=== PATIENT | female | born 1970 | race Caucasian/White ===

== ENCOUNTER 2018-10-15 19:30 | Emergency (ER) | payer OTHER ==
[~2018-10-15] VITALS: Ht 162.6 cm; Wt 110.9 kg
[~2018-10-15 19:30] MED LIST: ASPI-831 PO; ATOR20TA38 PO; BENA5TAB33 PO; CLON-379 PO; HYDR-3720 PO; HYDR25TA6 PO; LANT3I SC; LEVO500T48 PO; NITR0.4T39 SL; NOVO3I SC; PRED20TA PO; SERT-165 PO
[2018-10-15 19:41] VITALS: Ht 162.6 cm; Wt 110.9 kg
--- NOTE | 2018-10-15 20:34 | ERD ---
ER Documentation Chief Complaint Chief Complaint lower AP/dysuria/frequency/urgency x3 days. no n/v/d HPI 47-year-old female, with history of diabetes, presents to the emergency department, complaining of 3 days with urinary frequency, dysuria, pelvic discomfort and vaginal erythema with white discharge. No fever, no chills, no nausea or vomiting. The patient has been taking azo without improvement of the symptoms. ROS All systems reviewed and are negative except as per history of present illness. Medications Home Meds Active Scripts Clotrimazole* (Clotrimazole* AF) 1% - 30 Gm Cream.gm., 1 APPLIC TOP BID for 7 Days, TUB Prov:PING DELGADILLO MD 10/15/18 Fluconazole* (Diflucan*) 150 Mg Tablet, 150 MG PO ONCE for 1 Day, #1 TAB Prov:PING DELGADILLO MD 10/15/18 Ciprofloxacin Hcl* (Ciprofloxacin Hcl*) 250 Mg Tablet, 250 MG PO BID for 5 Days, #10 TAB Prov:PING DELGADILLO MD 10/15/18 Hydrocodone Bit-Acetaminophen* ([place]*) 7.5-325 Tablet, 1 TAB PO Q4H PRN for PAIN, #20 TAB Prov:TRAY HENNING DO 04/30/16 Prednisone* (Prednisone*) 20 Mg Tab, 60 MG PO DAILY for 5 Days, TAB Prov:TRAY HENNING DO 04/30/16 Levofloxacin* (Levaquin*) 500 Mg Tablet, 500 MG PO DAILY for 10 Days, TAB Prov:JUAN ANTONIO SMITH MD 12/10/15 Nitroglycerin* (Nitrostat*) 25 Tab Subl, 1 TAB SL Q5M PRN for ANGINA for 28 Days, BOT Prov:JUAN ANTONIO SMITH MD 12/10/15 Insulin Glargine* (Lantus*) 100 Unit/Ml Soln, 60 UNIT SC BID for 28 Days, BOT Prov:JUAN ANTONIO SMITH MD 12/10/15 Insulin Aspart* (Novolog Insulin Pen*) 100 Unit/Ml Soln, 25 UNIT SC WITH MEALS for 28 Days, BOT Prov:JUAN ANTONIO SMITH MD 12/10/15 Clonidine Hcl* (Clonidine Hcl*) 0.1 Mg Tab, 0.1 MG PO BID for 28 Days, TAB Prov:JUAN ANTONIO SMITH MD 12/10/15 Benazepril Hcl* (Benazepril Hcl*) 5 Mg Tab, 5 MG PO DAILY for 28 Days, TAB Prov:JUAN ANTONIO SMITH MD 12/10/15 Aspirin (Aspirin) 81 Mg Chew, 81 MG PO DAILY for 28 Days, TAB Prov:JUAN ANTONIO SMITH MD 12/10/15 Reported Medications Sertraline Hcl* (Sertraline Hcl*) 100 Mg Tablet, 100 MG PO DAILY, #30 TAB 12/05/15 Atorvastatin Calcium* (Atorvastatin Calcium*) 20 Mg Tablet, 20 MG PO DAILY, #30 TAB 12/05/15 Hydrochlorothiazide (Hydrochlorothiazide) 25 Mg Tablet, 25 MG PO DAILY, #30 TAB 12/05/15 Allergies Allergies: Coded Allergies: No Known Allergy (Unverified , 12/04/15) PMhx/Soc History of Surgery: Yes () Anesthesia Reaction: No Hx Neurological Disorder: No Hx Respiratory Disorders: No Hx Cardiac Disorders: Yes (htn, high cholesterol) Hx Psychiatric Problems: No Hx Miscellaneous Medical Probl: Yes (dm) Hx Alcohol Use: No Hx Substance Use: No Hx Tobacco Use: No Smoking Status: Never smoker FmHx Family History: diabetes; No coronary disease Physical Exam Vitals Vital Signs Date Temp Pulse Resp B/P (MAP) Pulse Ox O2 O2 Flow FiO2 Time Delivery Rate 10/15/18 98.1 78 16 166/84 98 19:41 (111) Physical Exam Const: No acute distress Head: Atraumatic Eyes: Normal Conjunctiva ENT: Normal External Ears, Nose and Mouth. Neck: Full range of motion. No meningismus. Resp: Clear to auscultation bilaterally Cardio: Regular rate and rhythm, no murmurs Abd: Soft, non tender, non distended. Normal bowel sounds Skin: No petechiae or rashes Back: No midline or flank tenderness Ext: No cyanosis, or edema Neur: Awake and alert Psych: Normal Mood and Affect Results 24 hrs Laboratory Tests Test 10/15/18 20:06 Bedside Urine pH (LAB) 6.5 Bedside Urine Protein (LAB) 2+ Bedside Urine Glucose (UA) 0.50% Bedside Urine Ketones (LAB) Negative Bedside Urine Blood Negative Bedside Urine Nitrite (LAB) Negative Bedside Urine Leukocyte Esterase (L Negative Procedures/MDM Differential diagnosis include but not limited to: UTI, colitis, gastroenteritis, kidney stones, irritable bowel syndrome, inflammatory bowel syndrome, malabsorption syndrome, cholelithiasis, food intolerance, medication side effect, pancreatitis, diverticulitis, bowel obstruction. Low suspicion for acute abdomen Physical examination and clinical presentation consistent most likely with cystitis During the ED course the patient remained stable, no new complaints. Results and clinical impression discussed with patient who agrees with management. The patient is stable to be treated outpatient and will be dis charged home, some side effects of prescribed medications (headache, rash, nausea, vomiting, diarrhea, drowsiness, habituation, bleeding, hypertension, interactions with other medications) were reviewed. The patient was instructed to follow up with the primary care provider in the next 48h. If symptoms persist, worsen or new symptoms develop, then patient should return to the ED immediately. Instructions explained and given directly by me to the patient with acknowledgment and demonstrated understanding. Disclaimer: Inadvertent spelling and grammatical errors are likely due to EHR/dictation software use and do not reflect on the overall quality of patient care. Also, please note that the electronic time recorded on this note does not necessarily reflect the actual time of the patient encounter. Departure Diagnosis: Primary Impression: Acute cystitis Condition: Stable Patient Instructions: Understanding Urinary Tract Infections (UTIs) Additional Instructions: Muchas marly por [facility] para salinas servicio. Esperamos que en salinas visita a la elizabeth de emergencia salinas problema medico haya sido solucionado y que se sienta mucho mejor. Para estar seguros que salinas mejoria sigue en proceso, le pedimos el favor de hacer margarita erick de seguimiento medico con salinas doctor primario en los proximos 2-4 phan. Lleve con usted estos documentos y las medicinas recetadas. Si ed sintomas empeoran, NO SE ESPERE, por favor regrese a elizabeth de emergencia INMEDIATAMENTE. En corina que usted no tenga un mdico de atencin primaria: Llame al mdico o clnica comunitaria de referencia que aparece abajo navneet las horas de consultorio para hacer margarita erick para que le vean. CLINICAS: [facility] [phone] [facility] [phone] [facility] [phone] [place] [phone] [place] [phone] [facility] [phone] PING COLON MD Oct 15, 2018 20:34
[2018-10-15] MEDS ORDERED: CLOT30CR24 TOP (20:48)
[2018-10-15] MEDS ORDERED: CIPR-193 PO (20:48)
[2018-10-15] MEDS ORDERED: FLUC150T PO (20:48)
[2018-10-15 21:11] VITALS: BP 177/74; PULSE 79; RESP 18
== END 2018-10-15 21:13 | disposition home or self-care (01) ==
LOC: FTE 19:30
DX: N30.00 Acute cystitis without hematuria (principal); E11.9 Type 2 diabetes mellitus without complications; I10 Essential (primary) hypertension; Z79.4 Long term (current) use of insulin; Z79.82 Long term (current) use of aspirin
CPT/HCPCS: 81003; Z7502; 99283

== ENCOUNTER 2019-01-09 21:28 | Emergency (ER) | payer OTHER ==
[~2019-01-09] VITALS: Wt 109.6 kg
[~2019-01-09 21:28] MED LIST changes: +CIPR-193 PO; +CLOT30CR24 TOP; +FLUC150T PO
--- NOTE | 2019-01-10 02:00 | ERD ---
ER Documentation Chief Complaint Chief Complaint vaginal pain/painful urination x 1week HPI This is a 48-year-old female presents emergency department with complaints of for about a week. Also complains of frequent urination. States that she takes her medication for diabetes regularly. LMP: Stated that he was 10 days ago. G5P to a 3. Diabetes. Denies headache, head injury, loss of consciousness, dizziness, neck pain, neck stiffness, throat pain, difficulty swallowing, difficulty breathing lying flat, shoulder pain, chest pain, back pain, abdominal pain, nausea, vomiting, constipation, diarrhea, or possibility being , loss of bowel and bladder control, trauma, injury, falls, difficulty walking due to pain, numbness or tingling sensation, calf pain, recent travel, recent major surgery in the last 3 weeks, calf pain, recent long travel, recent exposure to any illness, recent antibiotic use in the last 3 months, fever, chills, seizures. Past medical history: Hyperlipidemia. Hypertension. Surgical history: x2. Social: Denies smoking, use of alcoholic beverages, use of illegal drugs. ROS All systems reviewed and are negative except as per history of present illness. Medications Home Meds Active Scripts Ibuprofen* (Motrin*) 800 Mg Tab, 800 MG PO Q6H PRN for PAIN AND OR ELEVATED TEMP, #20 TAB Prov:MORGAN FORD 01/10/19 Phenazopyridine Hcl* (Pyridium*) 100 Mg Tab, 100 MG PO TID PRN for URINARY PAIN, #8 TAB Prov:MORGAN FORD 01/10/19 Clotrimazole* (Clotrimazole* AF) 1% - 30 Gm Cream.gm., 1 APPLIC TOP BID for 7 Days, TUB Prov:PING DELGADILLO MD 10/15/18 Fluconazole* (Diflucan*) 150 Mg Tablet, 150 MG PO ONCE for 1 Day, #1 TAB Prov:PING DELGADILLO MD 10/15/18 Ciprofloxacin Hcl* (Ciprofloxacin Hcl*) 250 Mg Tablet, 250 MG PO BID for 5 Days, #10 TAB Prov:PING DELGADILLO MD 10/15/18 Hydrocodone Bit-Acetaminophen* ([place]*) 7.5-325 Tablet, 1 TAB PO Q4H PRN for HELLEN N, #20 TAB Prov:TRAY HENNING DO 04/30/16 Prednisone* (Prednisone*) 20 Mg Tab, 60 MG PO DAILY for 5 Days, TAB Prov:TRAY HENNING DO 04/30/16 Levofloxacin* (Levaquin*) 500 Mg Tablet, 500 MG PO DAILY for 10 Days, TAB Prov:JUAN ANTONIO SMITH MD 12/10/15 Nitroglycerin* (Nitrostat*) 25 Tab Subl, 1 TAB SL Q5M PRN for ANGINA for 28 Days, BOT Prov:JUAN ANTONIO SMITH MD 12/10/15 Insulin Glargine* (Lantus*) 100 Unit/Ml Soln, 60 UNIT SC BID for 28 Days, BOT Prov:JUAN ANTONIO SMITH MD 12/10/15 Insulin Aspart* (Novolog Insulin Pen*) 100 Unit/Ml Soln, 25 UNIT SC WITH MEALS for 28 Days, BOT Prov:JUAN ANTONIO SMITH MD 12/10/15 Clonidine Hcl* (Clonidine Hcl*) 0.1 Mg Tab, 0.1 MG PO BID for 28 Days, TAB Prov:JUAN ANTONIO SMITH MD 12/10/15 Benazepril Hcl* (Benazepril Hcl*) 5 Mg Tab, 5 MG PO DAILY for 28 Days, TAB Prov:JUAN ANTONIO SMITH MD 12/10/15 Aspirin (Aspirin) 81 Mg Chew, 81 MG PO DAILY for 28 Days, TAB Prov:JUAN ANTONIO SMITH MD 12/10/15 Reported Medications Sertraline Hcl* (Sertraline Hcl*) 100 Mg Tablet, 100 MG PO DAILY, #30 TAB 12/05/15 Atorvastatin Calcium* (Atorvastatin Calcium*) 20 Mg Tablet, 20 MG PO DAILY, #30 TAB 12/05/15 Hydrochlorothiazide (Hydrochlorothiazide) 25 Mg Tablet, 25 MG PO DAILY, #30 TAB 12/05/15 Allergies Allergies: Coded Allergies: No Known Allergy (Unverified , 12/04/15) PMhx/Soc History of Surgery: Yes () Anesthesia Reaction: No Hx Neurological Disorder: No Hx Respiratory Disorders: No Hx Cardiac Disorders: Yes (htn, high cholesterol) Hx Psychiatric Problems: No Hx Miscellaneous Medical Probl: Yes (dm) Hx Alcohol Use: No Hx Substance Use: No Hx Tobacco Use: No Physical Exam Vitals Physical Exam Negative Christina sign. Negative Hamilton sign (or test). Const: No acute distress Head: Atraumatic Eyes: Normal Conjunctiva ENT: Normal External Ears, Nose and Mouth. Neck: Full range of motion. No meningismus. Resp: Clear to auscultation bilaterally Cardio: Regular rate and rhythm, no murmurs Abd: Soft, non tender, non distended. Normal bowel sounds. Negative Christina sign. Negative Hamilton sign (heel jar test). Negative psoas sign. Negative Rovsing sign. No CVA tenderness. Able to jump twice without developing lower abdominal pain. Ambulatory with steady gait without pain to lower abdomen. Skin: No petechiae or rashes. Color appears normal for ethnicity. No skin tenting no signs of severe dehydration. Back: No midline or flank tenderness Ext: No cyanosis, or edema Neur: Awake and alert. No neurological deficit. Psych: Normal Mood and Affect Results 24 hrs Laboratory Tests Test 01/10/19 02:10 Urine Color YELLOW Urine Clarity CLOUDY Urine pH 6.0 Urine Specific [place] 1.020 Urine Ketones NEGATIVE mg/dL Urine Nitrite NEGATIVE mg/dL Urine Bilirubin NEGATIVE mg/dL Urine Urobilinogen NEGATIVE mg/dL Urine Leukocyte Esterase NEGATIVE Melissa/ul Urine Microscopic RBC 1 /HPF Urine Microscopic WBC 2 /HPF Urine Squamous Epithelial Cells MODERATE /HPF Urine Hemoglobin NEGATIVE mg/dL Urine Glucose NEGATIVE mg/dL Urine Total Protein 2+ mg/dl Urine Test NEGATIVE Current Medications Medications Dose Sig/Twyla Start Time Status Last (Trade) Ordered Route PRN Stop Time Admin Dose Reason Admin 200 mg ONCE ONCE 01/10/19 DC 01/10/19 Phenazopyridi PO 04:30 04:41 ne HCl 01/10/19 04:31 (Pyridium) Procedures/MDM Diagnostic tests: POC urine : Negative. Urinalysis: Reviewed. Treatment: Pyridium. Re-evaluation: Denies abdominal pain. Denies pelvic pain. Denies vaginal bleeding. No abdominal tenderness. Able to jump 3 times without developing lower abdominal pain. Differential diagnosis I have low suspicion for sepsis, severe serious bacterial infection, DKA, PID, ovarian torsion, ovarian cyst rupture, appendicitis, cholecystitis, appendicitis, diverticulitis, diverticulitis with abscess, mesenteric ischemia, obstructing kidney stone, septic stone, pyelonephritis. Final diagnosis: Dysuria. Prescription: Pyridium. Follow-up with PCP in the next 24-48 hours. Come back here in the emergency department for any new symptoms or any worsening symptoms. All questions and concerns were answered. Patient and family members verbalized understanding and agreed with plan of care. Hemodynamically stable on discharge. Departure Diagnosis: Primary Impression: Dysuria Condition: Stable Additional Instructions: Follow-up with PCP in the next 24-48 hours. Come back here in the emergency department for any new symptoms or any worsening symptoms. MORGAN FORD Jan 10, 2019 02:00
[2019-01-10] MEDS ORDERED: PHEN-537 PO (04:19)
[2019-01-10] MEDS ORDERED: IBUP800T48 PO (04:19)
[2019-01-10] MEDS ORDERED: PHENAZOPYRIDINE 100 MG TAB PO ONE (04:30)
[2019-01-10 04:47] VITALS: BP 146/71; PULSE 81; RESP 18
== END 2019-01-10 04:48 | disposition home or self-care (01) ==
LOC: FTE 21:28
DX: R30.0 Dysuria (principal); I10 Essential (primary) hypertension; E11.9 Type 2 diabetes mellitus without complications; R10.2 Pelvic and perineal pain; Z79.4 Long term (current) use of insulin; Z79.82 Long term (current) use of aspirin
CPT/HCPCS: 81001; 84703; 87086; Z7502; Z7610; 99283